=== PATIENT | male | born 1975 | race Caucasian/White ===

== ENCOUNTER 2017-11-28 19:38 | Emergency (ER) | payer OTHER ==
[~2017-11-28] VITALS: Ht 172.7 cm; Wt 121.6 kg
[2017-11-28 20:04] VITALS: Ht 172.7 cm; Wt 121.6 kg
[2017-11-28 22:16] LABS: CARBON DIOXIDE 23.1 mmol/L (21-32); CHLORIDE SERUM 106 mmol/L (98-107); CREATININE SERUM 0.8 mg/dL (0.7-1.3); GFR1 > 60 mL/min; GLUCOSE SERUM 95 mg/dL (74-106); POTASSIUM SERUM 3.8 mmol/L (3.5-5.1); SODIUM SERUM 142 mmol/L (136-145)
[2017-11-28 23:22] VITALS: BP 125/84
== END 2017-11-28 23:22 | disposition home or self-care (01) ==
LOC: ED 19:38
PROVIDERS: Emergency Medicine
DX: R56.9 Unspecified convulsions (principal)